=== PATIENT | female | born 1945 | race Caucasian/White ===

== ENCOUNTER 2016-05-11 08:32 | Observation (INO) | payer OTHER ==
[~2016-05-11] VITALS: Ht 160 cm; Wt 90.7 kg
[2016-05-11 09:07] LABS: Basophils # (auto) 0 uL; Basophils % (auto) 0.6 % (0.0-2.0); Eosinophils # (auto) 0.1 uL; Eosinophils % (auto) 3.6 % (0.0-7.0); Hematocrit 41.5 % (36.0-46.0); Hemoglobin 13.8 g/dL (12.2-16.2); Lymphocytes # (auto) 0.9 uL; Lymphocytes % (auto) 23.4 % (10.0-50.0); Mean Corpuscular Hgb Conc. 33.2 g/dL (32.0-36.0); Mean Corpuscular Volume 93.4 fL (80.0-100.0); Mean Platelet Volume 7.7 fL (7.4-10.4); Monocytes # (auto) 0.5 uL; Monocytes % (auto) 12.8 % (0.0-12.0); Neutrophils # (auto) 2.3 uL; Neutrophils % (auto) 59.6 % (37.0-80.0); Platelet Count (auto) 226 10^3/uL (140-450); Red Cell Distribution Width 14.4 % (11.6-16.0); White Blood Cell 3.8 10^3/uL (4.4-10.8)
[2016-05-11 09:35] LABS: Albumin 3.6 g/dL (3.4-5.0); Alkaline Phosphatase 87 U/L (45-117); Anion Gap 14 (5-15); Aspartate Aminotransferase 49 U/L (15-37); Bilirubin, Total 0.5 mg/dL (0.2-1.0); Blood Urea Nitrogen 19 mg/dL (7-18); Calcium 8.9 mg/dL (8.5-10.1); Carbon Dioxide 26 mmol/L (21-32); Chloride 102 mmol/L (98-107); GFR African American 45 mL/min; GFR Non-African American 38 mL/min; Glucose 92 mg/dL (74-106); Potassium 3.8 mmol/L (3.5-5.1); Sodium 142 mmol/L (136-145); Total Protein 7.5 g/dL (6.4-8.2)
[2016-05-11] MEDS ORDERED: DILT180C PO (09:40)
[2016-05-11] MEDS ORDERED: ALPR0.254 PO (09:40)
[2016-05-11] MEDS ORDERED: CHOL4POW4 PO (09:40)
[2016-05-11] MEDS ORDERED: CITA-73 PO (09:40)
[2016-05-11] MEDS ORDERED: NOR5T PO (09:40)
[2016-05-11] MEDS ORDERED: METO-291 PO (09:40)
[2016-05-11] MEDS ORDERED: TRAM50TA2 PO (09:40)
[2016-05-11] MEDS ORDERED: ALBU1AER4 IN (09:40)
[2016-05-11] MEDS ORDERED: CARB25TA22 PO (09:40)
[2016-05-11] MEDS ORDERED: METF100097 PO (09:40)
[2016-05-11] MEDS ORDERED: FLUT1SPR5 (09:40)
[2016-05-11] MEDS ORDERED: METF-489 PO (09:40)
[2016-05-11] MEDS ORDERED: ATOR20TA50 PO (09:40)
[2016-05-11] MEDS ORDERED: AMIO200T33 PO (09:40)
[2016-05-11] MEDS ORDERED: MECL1TAB42 PO (09:40)
[2016-05-11] MEDS ORDERED: LISI-275 PO (09:40)
[2016-05-11] MEDS ORDERED: SODIUM CHLORIDE 0.9% 1,000 ML IV ONE (10:43)
[2016-05-11 11:25] LABS: Partial Thromboplastin Time 43.1 sec (22.64-33.71)
[2016-05-11 11:43] LABS: INR 1.48 (0.9-1.15); Prothrombin Time 15.2 sec (9.37-12.3)
[2016-05-11 11:50] LABS: B-Type Natriuretic Peptide 164.43 pg/mL (0-100)
[2016-05-11 11:51] LABS: Temperature: 22.9 C (20.0-25.0)
[2016-05-11 15:26] LABS: Urine Bilirubin Negative (Negative); Urine Blood Negative /uL (Negative); Urine Color Yellow (Yellow); Urine Hyaline Cast FEW /lpf (0 - 2); Urine Ketone Negative (Negative); Urine Nitrite Negative (Negative); Urine RBC 1 /hpf (0 - 4); Urine Squamous Epithelial Cell FEW /hpf (<5); Urine Urobilinogen Normal (Negative)
[2016-05-11 15:27] LABS: Urine Glucose 3+ mg/dL (Normal)
[2016-05-11 17:59] VITALS: BP 125/79
== END 2016-05-11 18:09 | disposition home or self-care (01) | DRG 948 ==
LOC: ER 08:39 → OVERFLOW 10:44 → ER 18:09
PROVIDERS: ADMIT Emergency Medicine; ATTEND Emergency Medicine
DX: R53.1 Weakness (principal); E03.9 Hypothyroidism, unspecified; E11.21 Type 2 diabetes mellitus with diabetic nephropathy; Z95.0 Presence of cardiac pacemaker; J45.909 Unspecified asthma, uncomplicated; I10 Essential (primary) hypertension
CPT/HCPCS: 36415; 71020; 80053; 81001; 83735; 83880; 84443; 84484; 85025; 85379; 85610; 85730; 93005; 96360; 99285; G0378

== ENCOUNTER 2017-02-08 14:04 | Emergency (ER) | payer OTHER, MEDICAID ==
[~2017-02-08] VITALS: Ht 160 cm; Wt 95.3 kg
[~2017-02-08 14:04] MED LIST: ALBU1AER4 IN; ALPR0.254 PO; AMIO200T33 PO; ATOR20TA50 PO; CARB25TA22 PO; CHOL4POW4 PO; CITA-73 PO; DILT180C PO; FLUT1SPR5; HYDR-4683 PO; LISI-275 PO; MECL1TAB42 PO; METF-489 PO; METF100097 PO; METO1TAB9 PO; TRAM50TA2 PO
[2017-02-08] MEDS ORDERED: ONDANSETRON HCL 4 MG/2 ML VIAL IV ONE (14:45)
[2017-02-08 15:47] LABS: Basophils # (auto) 0 uL; Basophils % (auto) 0.3 % (0.0-2.0); Eosinophils # (auto) 0 uL; Eosinophils % (auto) 0.2 % (0.0-7.0); Hematocrit 40.1 % (36.0-46.0); Hemoglobin 13.2 g/dL (12.2-16.2); Lymphocytes # (auto) 0.2 uL; Lymphocytes % (auto) 7.4 % (10.0-50.0); Mean Corpuscular Hemoglobin 32.2 pg (28.0-32.0); Mean Corpuscular Hgb Conc. 33.1 g/dL (32.0-36.0); Mean Corpuscular Volume 97.3 fL (80.0-100.0); Monocytes # (auto) 0 uL; Monocytes % (auto) 0.8 % (0.0-12.0); Neutrophils # (auto) 2.2 uL; Neutrophils % (auto) 91.3 % (37.0-80.0); Nucleated Red Blood Cells % 0.3 %; Platelet Count (auto) 149 10^3/uL (140-450); Red Blood Cells 4.12 10^6/uL (4.0-5.20); Red Cell Distribution Width 14.6 % (11.8-14.3); White Blood Cell 2.4 10^3/uL (4.4-10.8)
[2017-02-08 15:51] LABS: Lactic Acid w/Reflex 6.6 mmol/L (0.4-2.0)
[2017-02-08 15:55] LABS: Alanine Aminotransferase 705 U/L (13-56); Albumin 3.6 g/dL (3.4-5.0); Alkaline Phosphatase 350 U/L (45-117); Amylase 54 U/L (25-115); Anion Gap 12 (5-15); Aspartate Aminotransferase 1650 U/L (15-37); BUN/Creatinine Ratio 14.5; Bilirubin, Total 1.7 mg/dL (0.2-1.0); Blood Urea Nitrogen 23 mg/dL (7-18); Calcium 8.7 mg/dL (8.5-10.1); Carbon Dioxide 22 mmol/L (21-32); Chloride 106 mmol/L (98-107); GFR African American 41 mL/min; GFR Non-African American 34 mL/min; Glucose 145 mg/dL (74-106); Lipase 144 U/L (73-393); Magnesium 1.7 mg/dL (1.6-2.6); Potassium 4.1 mmol/L (3.5-5.1); Sodium 140 mmol/L (136-145); Total Protein 7.1 g/dL (6.4-8.2)
[2017-02-08 16:01] LABS: Urine Bacteria NONE SEEN /hpf (None Seen); Urine Blood TRACE /uL (Negative); Urine Specific Gravity 1.012 (1.001-1.035); Urine WBC 2 /hpf (0 - 5)
[2017-02-08] MEDS ORDERED: SODIUM CHLORIDE 0.9% 1,000 ML IV ONE ×3 (17:00→21:00)
[2017-02-08] MEDS ORDERED: SODIUM CHLORIDE 0.9% 2,000 ML IV ONE (17:00)
[2017-02-08] MEDS ORDERED: ACETAMINOPHEN 650 MG RECT SUPP PR ONE ×2 (17:15→22:30)
[2017-02-08] MEDS ORDERED: cefTRIAXone 1GM/10ml IVPUSH 10 ML IV ONE (18:15)
[2017-02-08] MEDS ORDERED: VANCOMYCIN PER PHARMACY 0 MG IV SCH (18:45)
[2017-02-08] MEDS ORDERED: PIPERACILLIN-TAZOB 3.375GM 50 ML IV ONE (18:45)
[2017-02-08] MEDS ORDERED: NOREPINEPHRINE 8 MG/250ML KIT 250 ML IV SCH (19:30)
[2017-02-08] MEDS ORDERED: VANCOMYCIN 1,500 MG in D5W 5% 250 ML IV ONE (20:00)
[2017-02-08 22:37] VITALS: BP 108/47
== END 2017-02-09 | disposition short-term general hospital (02) ==
LOC: EDBD 14:04 → ER 14:04
DX: A41.9 Sepsis, unspecified organism (principal); R65.21 Severe sepsis with septic shock; L89.92 Pressure ulcer of unspecified site, stage 2; J45.909 Unspecified asthma, uncomplicated; R74.8 Abnormal levels of other serum enzymes; G20 Parkinson's disease; E11.9 Type 2 diabetes mellitus without complications; E78.5 Hyperlipidemia, unspecified; I25.10 Atherosclerotic heart disease of native coronary artery without angina pectoris; I48.91 Unspecified atrial fibrillation; K83.8 Other specified diseases of biliary tract; Z88.0 Allergy status to penicillin; Z88.8 Allergy status to other drugs, medicaments and biological substances; Z79.899 Other long term (current) drug therapy; Z90.49 Acquired absence of other specified parts of digestive tract; Z95.0 Presence of cardiac pacemaker; Z91.041 Radiographic dye allergy status
CPT/HCPCS: 36415; 36556; 36600; 51702; 70450; 71010; 74176; 80053; 81001; 82150; 82805; 83605; 83690; 83735; 84484; 85025; 87040; 87077; 87186; 93005; 96361; 96365; 96366; 96367; 96368; 96375; 99291; J2405; J2543; J3370; J7030; J7060